=== PATIENT | female | born 1950 | race Caucasian/White ===

== ENCOUNTER 2016-10-15 14:00 | Inpatient (IN) | payer MEDICARE ==
--- NOTE | ~2016-10-15 | CN ---
Consultation Report [facility] [address] [place]. [address] NAME: LIZA SUMMERS : 46 STATUS : ADM IN PAT#: [id number] AGE: 66 ADM/REG DATE : 10/15/16 MR#: [id number] REPORT SERV DATE: 10/19/16 DICTATED BY: AIME ROSADO DATE: 10/19/16 REPORT STATUS : Draft TRANSCRIBED BY: MODL DATE: 10/19/16 CONSULTATION DATE OF CONSULTATION: 10/19/2016 REASON FOR CONSULTATION: Right-sided colon cancer. HISTORY OF PRESENT ILLNESS: Ms. Liza Summers is a 66-year-old woman with significant diabetes, history of a stroke almost 20 years ago, hyperlipidemia, hypertension, diabetic neuropathy. She was found to have a hemoglobin of 8.1 with microcytosis and admitted for transfusion. She is found to have mild renal insufficiency as well as iron deficiency. She reports over about a 40-pound weight loss over the last year and a half due to anorexia. She has had no prior colonoscopies. She underwent a colonoscopy on earlier today that showed right-sided colon cancer. CT scan done earlier today shows circumferential cecal mass measuring roughly 6 cm. She was given IV contrast, and there is no signs of hepatic or pulmonary metastases. The patient has already met with Dr. Hawkins earlier today and has to undergo surgery tomorrow for right hemicolectomy. PAST MEDICAL HISTORY: 1. Diabetes. 2. History of stroke. 3. Hyperlipidemia, hypertension, diabetic neuropathy. HOME MEDICATIONS: Lipitor, Lantus, Humalog, Prinivil, Lopressor, triamterene, B12. ALLERGIES: ASPIRIN. FAMILY HISTORY: No family history of colon cancer. 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 Lives with her and cares for her grandchildren. REVIEW OF SYSTEMS: See HPI. 40-pound weight loss over the last year and a half. Chronic neuropathy. No nausea, vomiting, diarrhea, hematochezia, melena. She has no acute pain at this point. PHYSICAL EXAMINATION: VITAL SIGNS: Temperature 97.0, heart rate of 81, BP 148/66. HEENT: Pupils equal, round, reactive. No oral lesions. No cervical adenopathy. LUNGS: Clear to auscultation. No wheezes or rales. CARDIAC: Regular rate and rhythm. Normal S1, S2. ABDOMEN: Soft, nontender, nondistended. EXTREMITIES: No clubbing, no cyanosis, no edema. Consultation Report [facility] [address] [place]. [address] NAME: LIZA SUMMERS : 46 STATUS : ADM IN PAT#: [id number] AGE: 66 ADM/REG DATE : 10/15/16 MR#: [id number] REPORT SERV DATE: 10/19/16 DICTATED BY: AIME ROSADO DATE: 10/19/16 REPORT STATUS : Draft TRANSCRIBED BY: RYAN DATE: 10/19/16 CT scan personally reviewed. There is a large cecal mass. Otherwise, no signs of distant disease. ASSESSMENT AND PLAN: Ms. Liza Summers is a 66-year-old woman with diabetes, diabetic neuropathy with the newly diagnosed adenocarcinoma of the right colon. Dr. Hawkins has already discussed and plans surgery tomorrow. I discussed with the patient that adjuvant chemotherapy will be based on the improvement in her performance status and results from the colectomy. I plan to see her in clinic two weeks after surgery to discuss this. I discussed the CT scans personally reviewed with the patient, and past history was reviewed. Iron deficiency anemia. She has a significant iron deficiency anemia. Hopefully, this will improve with surgery. DBD/RYAN Aime Rosado M.D. / [id number] CC: DO Antonio Curry MD
--- NOTE | ~2016-10-15 | DS ---
Discharge Summary [facility] [address] [place]. [address] NAME: LIBERTAD MESA : 46 STATUS : DIS IN PAT#: [id number] AGE: 66 ADM/REG DATE : 10/15/16 MR#: [id number] REPORT SERV DATE: 10/25/16 DICTATED BY: NILA CHANG DATE: 10/24/16 REPORT STATUS : Draft TRANSCRIBED BY: MODL DATE: 10/24/16 ADMISSION DATE: 10/15/2016 DISCHARGE DATE: 10/24/2016 HOSPITAL COURSE: A 66-year-old obese female. She has a known history of stroke in 1992, hyperlipidemia, hypertension, and type 2 diabetes, insulin dependence, has been on insulin for several years. The patient came in to primary care physician's office prior to hospitalization for weakness and fatigue, symptomatic anemia, hemoglobin 8.2, and guaiac positivity of the stool. She has also been having significant hyperglycemia into the upper 300s, A1c was above 11, noted to have a significant over 20-pound weight loss the last six months as well. She was seen to have ROSENDA, hyperkalemia, symptomatic anemia requiring 2 PRBCs initially for symptomatic anemia. The patient was evaluated by GI regarding this microcytic acute blood loss anemia. She did not have any evidence of overt active quick GI bleed but did have a slow bleed with guaiac positivity. As a result was set up for endoscopy which had showed gastritis and duodenitis. Then, she had a colonoscopy which had showed an unfortunate likely malignant partially obstructing tumor 8 cm proximal to the anus, biopsied, injected. She was staged with a CT thereafter. CT of abdomen and pelvis had showed a 6-cm circumferential mass in the cecum highly suspicious for carcinoma, no evidence of large necrotic lymph nodes, no evidence of liver lesions. She had a CT of the chest that showed only minimal pleural effusions and atelectasis. The last, however, I scanned her upper extremity on the left and just showed superficial thrombophlebitis, distal left basilic vein, no DVT found. Given her ROSENDA, she had a renal ultrasound. There was no obstruction found, kidney function returned back to baseline. The patient with Dr. Hawkins had a laparoscopic right colectomy with resection of the terminal ilium and an ileocolonic anastomosis. She is doing very well, the [place] has been pulled. She is tolerating a soft mechanical diet. She has required much less insulin than at home. Her acidosis has improved with sodium bicarbonate. She did have an E. coli UTI that was treated as well, finished treatment. The patient did have some acute blood loss anemia from surgery. Hemoglobin down to 7, gave her 2 units now, she is appropriate at 11 of hemoglobin. She has some mild brittle diabetes, occasionally would be hypoglycemic at night and now in the morning, I am reducing her Levemir or Lantus equivalent to now 6 units subcu at bedtime and 10 units subcu q.a.m., NovoLog 4 units subcu t.i.d. before meals. Given her weight loss and lifestyle modification, she may eventually have an A1c that would be permissive for oral antihyperglycemics, especially she is requiring less than 30 units of insulin total per day. Dr. Rosado has seen her for postoperative adjuvant chemotherapy. We will see her as an outpatient if is amenable regarding the biopsy and performance status. The patient does not want Home Health. PT states she can go home. DISCHARGE MEDS: Will be NovoLog 4 units subcu t.i.d. before meals as well as Imdur 30 p.o. daily; losartan 25 p.o. daily, hold if systolic less than 110; metoprolol tartrate 50 p.o. b.i.d.; Levemir 10 units subcu q.a.m. and 16 units subcu at bedtime; Lipitor 10 p.o. at Discharge Summary [address] [address] NAME: TYKAYLA JOYLANCE GUSMAN : 46 STATUS : DIS IN PAT#: [id number] AGE: 66 ADM/REG DATE : 10/15/16 MR#: [id number] REPORT SERV DATE: 10/25/16 DICTATED BY: NILA CHANG DATE: 10/24/16 REPORT STATUS : Draft TRANSCRIBED BY: MODAlexandra DATE: 10/24/16 bedtime as well as aspirin, enteric coated, 81 p.o. daily. FOLLOWUP: Follow up with Dr. Rosado in two weeks, Dr. Hawknis in two to three weeks, and primary care doctor in two weeks. Could consider possible oral anti-hyperglycemic treatment if she continues weight loss, her A1c gets below 8 on insulin, and she requires less than 30 units total insulin requirements over 24 hours. She has been brittle requiring much less insulin than in the past when she weighed much more. All questions were answered, took well over 30 minutes to do. [facility] and [facility]. To note, her biopsy of right colon is still pending. WST/MODL Nila Chang DO / [id number] CC: DO Antonio Curry MD
--- NOTE | ~2016-10-15 | EGD ---
EGD REPORT [facility] [address] [address] NAME: LIZA SUMMERS : 46 STATUS : ADM IN PAT#: [id number] AGE: 66 ADM/REG DATE : 10/15/16 MR#: [id number] REPORT SERV DATE: 10/19/16 DICTATED BY: SHADI SHEPARD DATE: 10/19/16 REPORT STATUS : Draft [facility]ANSCRIBED BY: [facility] DATE: 10/19/16 Endoscopy Center Patient Name: Liza Summers Date of : 1950 Attending MD: SHADI SHEPARD MD Procedure Date No Time: 10/19/2016 Procedure: Upper GI endoscopy Indications: Anemia Referring MD: Antonio Eid Medicines: Monitored Anesthesia Care Complications: No immediate complications. Estimated blood loss: Minimal. Procedure: Pre-Anesthesia Assessment: - ASA Grade Assessment: III - A patient with severe systemic disease. After obtaining informed consent, the endoscope was passed under direct vision. Throughout the procedure, the patient's blood pressure, pulse, and oxygen saturations were monitored continuously. The GIF [id number] was introduced through the mouth, and advanced to the second part of duodenum. The upper GI endoscopy was accomplished without difficulty. The patient tolerated the procedure well. Findings: The examined esophagus was normal. Patchy mild inflammation characterized by erosions, erythema and linear erosions was found in the entire examined stomach. Biopsies were taken with a cold forceps for Helicobacter pylori testing. Estimated blood loss was minimal. Localized mild inflammation characterized by congestion (edema), erosions and erythema was found in the duodenal bulb. The cardia and gastric fundus were normal on retroflexion. The exam was otherwise without abnormality. Impression: - Gastritis. Biopsied. - Duodenitis. - The examination was otherwise normal. Recommendation: - Perform a colonoscopy today. Procedure Code(s): --- Professional --- 82244, Esophagogastroduodenoscopy, flexible, transoral; with biopsy, single or multiple EGD REPORT [facility] [address] [place]. [address] NAME: LIZA SUMMERS : 46 STATUS : ADM IN [facility]#: [id number] AGE: 66 ADM/REG DATE : 10/15/16 MR#: [id number] REPORT SERV DATE: 10/19/16 DICTATED BY: SHADI SHEPARD DATE: 10/19/16 REPORT STATUS : Draft TRANSCRIBED BY: [email or web address] DATE: 10/19/16 Diagnosis Code(s): --- Professional --- K29.70, Gastritis, unspecified, without bleeding K29.80, Duodenitis without bleeding D64.9, Anemia, unspecified CPT copyright 2013 [employer]. All rights reserved. The codes documented in this report are preliminary and upon computer language coder review may be revised to meet current compliance requirements. Shadi Shepard MD SHADI SHEPARD MD 10/19/2016 9:36 AM This report has been signed electronically. Number of Addenda: 0 Note Initiated On: 10/19/2016 9:14 AM Scope Withdrawal Time 0 hours 0 minutes 0 seconds [address] [place] [address]
--- NOTE | ~2016-10-15 | HP ---
History And Physical [facility] [address] [place]. [address] NAME: LIBERTAD MESA : 46 STATUS : ADM IN PAT#: [id number] AGE: 66 ADM/REG DATE : 10/15/16 MR#: [id number] REPORT SERV DATE: 10/15/16 DICTATED BY: LEVY LANIER DATE: 10/15/16 REPORT STATUS : Draft TRANSCRIBED BY: MODAlexandra DATE: 10/15/16 DATE OF ADMISSION: 10/15/2016 CHIEF COMPLAINT: Sent from primary care doctor's office for abnormal lab values. HISTORY OF PRESENT ILLNESS: This is a 66-year-old female, who presented to her primary care doctor's office for concerns weakness and fatigue yesterday. It was noted that she had a hemoglobin of 8.2. She was scheduled for today to have three units of blood scheduled as an outpatient. He also referred her for an urgent colonoscopy and endoscopy for which she was scheduled on 10/28/2016. Per patient, she has had this fatigue with worsening weakness including having to use a cane for about the past week. She says she has had some falls that she is unable to catch herself mostly at night when she cannot see very well. She denies any melena or hematuria. She says her stools are normal brown without any bright red blood. She denies any fevers, chills, shortness of breath, or chest pain. She notes that she has not been checking her blood sugars very well, but has noted that when she checks them maybe once a day, they have been up to 300s. Her A1c yesterday at primary care doctor's office was 11. She has notably had about a 40-pound weight loss in the past year and half which has been intentional. She previously was on metformin which they stopped about six months ago because she said she was urinating too much and it was making her dehydrated. REVIEW OF SYSTEMS: Full review of systems is obtained and is negative with the exception of above HPI. PAST MEDICAL HISTORY: Includes history of stroke in 1992, hyperlipidemia, hypertension, and type 2 diabetes. SOCIAL HISTORY: Denies alcohol or drug use. Lives with her who is a inorganic chemist. FAMILY HISTORY: Denies any family history of chronic medical conditions. Per primary care notes, there is a history of hypertension and type 2 diabetes. HOME MEDICATIONS: List is pending at this time. However, the patient does recall she takes lisinopril, metoprolol, as well as Lantus 80 units subcu at night with sliding scale. PHYSICAL EXAMINATION: VITAL SIGNS: Temperature is 97.6, pulse 81, respiratory rate 19, saturating 99% on room air, with blood pressure of 138/62. LABORATORY DATA: From her primary care physician's office yesterday with white blood cell count of 18.8, hemoglobin of 8.1, and platelet count of 702. Creatinine 1.9, BUN is 76, serum sodium 120, with chloride of 92, CO2 of 14, and potassium of 6.6. Current laboratory data which was a collected stat here in the hospital shows serum sodium 128, potassium 4.7, chloride 99, CO2 of 17, BUN 73, creatinine 2.37, with glucose of 529. ASSESSMENT AND PLAN: This is a 66-year-old female with a history of hypertension, History And Physical [address] [address] NAME: LIBERTAD MESA NASEEM : 46 STATUS : ADM IN PAT#: [id number] AGE: 66 ADM/REG DATE : 10/15/16 MR#: [id number] REPORT SERV DATE: 10/15/16 DICTATED BY: LEVY LANIER DATE: 10/15/16 REPORT STATUS : Draft TRANSCRIBED BY: RYAN DATE: 10/15/16 hyperlipidemia, and stroke, presenting from primary care doctor's office due to hyperkalemia. 1. Hyperkalemia. The patient's repeat potassium here is 4.7, we will monitor that. We will hold her lisinopril and correct her other issues. 2. Acute renal failure. Her creatinine yesterday was 1.9 per the physician I just spoke with who is her primary care doctor, Dr. Eid. Her creatinine had been normal prior to that. Again for this acute renal failure, we will hydrate her. She does have a non-anion gap metabolic acidosis with this. We will give her IV fluids with IV bicarb. Check urinalysis with urine lytes as well as a renal ultrasound. We will hold her lisinopril as well as other nephrotoxic drugs and renally do adjust medications as needed. 3. Uncontrolled type 2 diabetes with A1c of over 11. The patient has been on Lantus 18 units at bedtime. No p.o. medications as far as I know on a sliding scale. At this point, we will have Diabetes Education see her, monitor her blood sugars, and place her on a diabetic diet. We will continue her home 18 units and monitor her blood sugars here and place her on sliding scale. 4. Pseudohyponatremia. Follow with repeat blood work in the morning. 5. Non-anion gap metabolic acidosis due to renal failure. We will give her IV fluids with bicarb and follow. 6. Anemia. The patient did receive 2 units of blood as an outpatient today, unclear etiology of this anemia. Unfortunately, I do not have the ability to check an iron panel given she has already received blood. We will Hemoccult her stools. She has an outpatient followup in October for colonoscopy and endoscopy. We will keep these appointments unless she has any active bleeding here and will not proceed with endoscopy and colonoscopy at this time. We will check a CBC in the morning and follow her counts while she is here. She does not have any history of active bleeding. Thus, I feel it is safe to wait for outpatient endoscopy to work this up. This is not a life- threatening issue. Pending her repeat blood work here. 7. Fatigue with weakness. I suspect this is largely related to her very uncontrolled diabetes, possibly related to her anemia as well. The anemia has been corrected. We will follow her along here and have PT see her and monitor. 8. Unintentional weight loss with moderate malnutrition. Again, I suspect this is largely related to her uncontrolled diabetes. We will monitor her here, continue to monitor her blood sugars, and place her on an appropriate diet. Again, she will need close followup as an outpatient. 9. Code status is limited. She does not wish to have compressions or intubation. Deep vein thrombosis prophylaxis will be with heparin. DNK/MODL Levy Lanier MD / [id number] History And Physical [address] [address] NAME: LIBERTAD MESA DOB: [birth year] STATUS : ADM IN PAT#: [id number] AGE: 66 ADM/REG DATE : 10/15/16 MR#: [id number] REPORT SERV DATE: 10/15/16 DICTATED BY: LEVY LANIER DATE: 10/15/16 REPORT STATUS : Draft TRANSCRIBED BY: MODL DATE: 10/15/16 CC: MD Antonio Bliss MD
--- NOTE | ~2016-10-15 | OP ---
Record Of Operation [facility] [address] [place]. [address] NAME: LIBERTAD MESA : 46 STATUS : ADM IN [facility]#: [id number] AGE: 66 ADM/REG DATE : 10/15/16 MR#: [id number] REPORT SERV DATE: 10/21/16 DICTATED BY: PRABHAKAR ROOT III DATE: 10/20/16 REPORT STATUS : Draft TRANSCRIBED BY: MODL DATE: 10/20/16 DATE OF PROCEDURE: 10/20/2016 PREOPERATIVE DIAGNOSIS: Obstructing cancer of the right colon. POSTOPERATIVE DIAGNOSES: Obstructing cancer of the right colon, large malignancy of the cecum associated with iron deficiency anemia and near obstruction. PROCEDURE: Laparoscopic right colectomy with resection of terminal ileum and ileocolonic anastomosis. SURGEON: Prabhakar Root M.D. ANESTHESIA: General with intubation. COMPLICATIONS: None. ESTIMATED BLOOD LOSS: 25 mL. SPECIMENS: Terminal ileum and right colon. DRAINS: Ophelia in subcutaneous tissue. LAP AND SPONGE COUNT: Correct x3. BRIEF HISTORY: This 66-year-old female was admitted to the hospital emergently with evidence for severe anemia requiring transfusion. Subsequent workup revealed a large mass in the right colon. Her workup showed no evidence for metastatic disease. It was felt that a laparoscopic right colectomy, possible laparotomy, was indicated. This procedure, the risks, benefits, and alternatives, including but not limited to in the risk for bleeding, infection, enterotomy, injury to any abdominal structure, postop small bowel obstruction, ileus, incisional hernia, dehiscence, anastomotic leak, requiring reoperation with ileostomy, ureteral injury, possible need for laparotomy, and unforeseen complications including deep venous thrombosis, pulmonary embolus, myocardial infarction, stroke, pneumonia, and , were fully and completely explained to the patient and family at length prior to surgery. The fact that this was a major operation with risk for major morbidity and mortality was explained as well as the expected length of recovery with open laparoscopic procedures. The patient and family had questions, which were answered. They fully understood the risks and agreed to the surgery as planned. FINDINGS: The patient had a large obvious malignancy of the cecum. There was no evidence for metastatic disease or carcinomatosis. Resection with clear margins was performed. DESCRIPTION OF PROCEDURE: After being properly identified and after discussing the risks of surgery with the patient and family again in the preoperative area and after appropriate bowel preparation, the patient was taken to the operating room and placed in the supine Record Of [address] [address] NAME: LIBERTAD MESA : 46 STATUS : ADM IN PAT#: [id number] AGE: 66 ADM/REG DATE : 10/15/16 MR#: [id number] REPORT SERV DATE: 10/21/16 DICTATED BY: PRABHAKAR ROOT III DATE: 10/20/16 REPORT STATUS : Draft TRANSCRIBED BY: MODAlexandra DATE: 10/20/16 position on the operating room table. General anesthesia was administered and she was intubated without difficulty. A Padilla catheter was inserted. The abdomen was prepped and draped sterilely in the usual fashion. After an appropriate "time-out" per [employer] standards, a small transverse incision was made just below the navel. Incision was continued through the subcutaneous tissue. Hemostasis was controlled with cautery. The incision was continued through the fascia. The abdominal cavity was entered under direct vision. A #10 balloon-tipped origin trocar was placed under direct vision into the abdominal cavity. The balloon was inflated. The abdominal cavity was then insufflated to about 13 mmHg of carbon dioxide. Correct position of the air in the peritoneal cavity was confirmed by palpation. The laparoscope was placed through this. The abdomen was inspected. There was an obvious large malignancy in the cecum. This had been marked by the endoscopist. There was no evidence for carcinomatosis or peritoneal implants. The liver appeared to be normal. A 5-mm trocar was placed in the midline, midway between the umbilicus and xiphoid process, under direct vision with the laparoscope. Another 5-mm trocar was placed in the midline, just above the pubis, also under direct vision with the laparoscope. The appropriate instruments were placed through the trocars. The patient was rolled slightly to her left. The right colon was grasped and retracted medially. Using sharp dissection, peritoneal reflection along the line of Toldt was divided from the cecum to the hepatic flexure. The entire right colon was thus mobilized medially to the right. Ureter was identified and kept in view and not encroached upon. The adhesions or band between the terminal ileum and the pelvis were divided. After full mobilization, a vertical incision was made along the right lateral abdominal wall over the mid right colon. The incision was continued through the subcutaneous tissue. Hemostasis was controlled. The incision was continued through all layers of fascia. The abdominal cavity was entered. The right colon was mobilized into the wound. There was extremely large mass, which incorporated the entire cecum. We selected a point for division of the terminal ileum several centimeters proximal to the ileocecal valve. A window was made in mesentery of the ileum at this point and the SAIMA stapler was used to divide the ileum at this point. We then selected a point for division of the right colon, just proximal to the hepatic flexure, beyond the tumor. A window was made in the mesentery of the colon at this point. A SAIMA stapler was used about the colon this point. The mesentery of the right colon was then divided using Harmonic scalpel. This was done along the base of the mesentery so as to perform a correct oncologic dissection of the lymphovascular supply to the right colon. The right colon was thus removed and sent to pathology. It was interpreted as containing the tumor with clear margins. We then performed a gcuf-am-ahee anastomosis between the divided terminal ileum and the distal right colon. This was performed by aligning the antimesenteric border of the small bowel with the antimesenteric border of the colon with interrupted 3-0 silk sutures. A small opening was then made in the antimesenteric border of the small bowel and corresponding antimesenteric border of the colon. A SAIMA stapler was placed through this and fired. The defect created by the stapler was then closed with TA-60 stapler. This staple line was oversewn with interrupted 3-0 silk sutures. The "crotch" anastomosis was secured Record Of Operation [facility] [id number] [place]. [address] NAME: TYLIBERTAD JOY NASEEM : 46 STATUS : ADM IN PAT#: [id number] AGE: 66 ADM/REG DATE : 10/15/16 MR#: [id number] REPORT SERV DATE: 10/21/16 DICTATED BY: PRABHAKAR ROOT III DATE: 10/20/16 REPORT STATUS : Draft TRANSCRIBED BY: MODL DATE: 10/20/16 with interrupted 3-0 silk sutures. Upon completion of the anastomosis, we realized that the mesentery was somewhat twisted. I was not satisfied with the anastomosis. I, therefore, resected this anastomosis by dividing the small bowel proximal to it and divided the colon just distal to it with the SAIMA stapler. This was sent separately as a separate specimen consisting of additional terminal ileum and additional distal right colon. We then repeated the anastomosis in the same fashion. Upon completion of this anastomosis, it was patent to palpation. It was not twisted or kinked in any way. It was not under any tension. The mesenteric defect was closed with a running 3-0 silk suture. Again, this anastomosis was widely patent to palpation, it was not twisted or kinked in any way. It was not under any tension. This was reduced back in the abdominal cavity. The area was irrigated copiously with saline. Hemostasis was assured. The fascia was then closed in two layers with a running looped #1 PDS suture. All trocars were removed. The fascia of the infraumbilical incision was closed with a 0 Vicryl suture. The subcutaneous tissue of the right lateral abdominal wall incision was closed with a running 3-0 chromic suture over a Ophelia drain, which was brought out through the inferior aspect of the incision. The skin incisions were closed with running subcuticular 4-0 Monocryl stitches. They were injected with 0.5% Marcaine. Dressings were applied. Anesthesia was reversed and the patient was taken to the recovery room in stable condition. She tolerated the procedure well. Her family was informed the results of surgery. The patient will remain in the hospital for postoperative care. RHJ/MODL Prabhakar Root III, M.D. / [id number] CC: DO Antonio Curry MD William M. Cooney, MD
--- NOTE | ~2016-10-15 | EGD ---
EGD REPORT [facility] [address] [place]. [address] NAME: LIZA SUMMERS : 46 STATUS : ADM IN PAT#: [id number] AGE: 66 ADM/REG DATE : 10/15/16 MR#: [id number] REPORT SERV DATE: 10/19/16 DICTATED BY: SHADI SHEPARD DATE: 10/19/16 REPORT STATUS : Draft TRANSCRIBED BY: [facility] DATE: 10/19/16 Endoscopy Center Patient Name: Liza Summers Date of : 1950 Attending MD: SHADI SHEPARD MD Procedure Date No Time: 10/19/2016 Procedure: Colonoscopy Indications: Anemia Referring MD: Antonio Eid Medicines: Monitored Anesthesia Care Complications: No immediate complications. Estimated blood loss: Minimal. Procedure: Pre-Anesthesia Assessment: - ASA Grade Assessment: III - A patient with severe systemic disease. After I obtained informed consent, the scope was passed under direct vision. Throughout the procedure, the patient's blood pressure, pulse, and oxygen saturations were monitored continuously. The CF [id number] was introduced through the anus and advanced to the ascending colon. The colonoscopy was performed without difficulty. The patient tolerated the procedure well. The quality of the bowel preparation was good. Findings: The perianal and digital rectal examinations were normal. Pertinent negatives include no palpable rectal lesions. A fungating partially obstructing large mass was found at 80 cm proximal to the anus. The mass was circumferential. Oozing was present. Biopsies were taken with a cold forceps for histology. Area was successfully injected with 5 mL Spot (carbon black) for tattooing. Estimated blood loss was minimal. The exam was otherwise without abnormality on direct and retroflexion views. Impression: - Likely malignant partially obstructing tumor at 80 cm proximal to the anus. Biopsied. Injected. - The examination was otherwise normal on direct and retroflexion views. Recommendation: - Clear liquid diet today. - Await pathology results. - Perform a CT scan (computed tomography) of chest with contrast, abdomen with contrast and pelvis with contrast today. EGD REPORT [address] [address] NAME: LIZA SUMMERS : 46 STATUS : ADM IN [facility]#: [id number] AGE: 66 ADM/REG DATE : 10/15/16 MR#: [id number] REPORT SERV DATE: 10/19/16 DICTATED BY: SHADI SHEPARD DATE: 10/19/16 REPORT STATUS : Draft TRANSCRIBED BY: [employer] DATE: 10/19/16 - Refer to a colo-rectal surgeon today. - Check CEA today. Procedure Code(s): --- Professional --- 26441, 52, Colonoscopy, flexible, proximal to splenic flexure; with biopsy, single or multiple 21533, 52, Colonoscopy, flexible, proximal to splenic flexure; with directed submucosal injection(s), any substance Diagnosis Code(s): --- Professional --- D49.0, Neoplasm of unspecified behavior of digestive system D64.9, Anemia, unspecified CPT copyright 2013 [employer]. All rights reserved. The codes documented in this report are preliminary and upon jewelry facer review may be revised to meet current compliance requirements. Shadi Shepard MD SHADI SHEPARD MD 10/19/2016 10:05 AM This report has been signed electronically. Number of Addenda: 0 Note Initiated On: 10/19/2016 9:15 AM Scope Withdrawal Time 0 hours 0 minutes 0 seconds [address] [place] [address]
--- NOTE | ~2016-10-15 | CN ---
Consultation Report [facility] [address] [place]. [address] NAME: LIBERTAD MESA : 46 STATUS : ADM IN [facility]#: [id number] AGE: 66 ADM/REG DATE : 10/15/16 MR#: [id number] REPORT SERV DATE: 10/16/16 DICTATED BY: ROBERT SHELLEY DATE: 10/16/16 REPORT STATUS : Draft TRANSCRIBED BY: RYAN DATE: 10/16/16 GI CONSULTATION DATE OF CONSULTATION: 10/16/2016 REASON FOR CONSULTATION: Microcytic anemia. HISTORY OF PRESENT ILLNESS: The patient is a 66-year-old female, who was referred from her primary care physician's office for admission. She was found to be anemic with hemoglobin of 8.1 with microcytic indices. She was referred for transfusion, which she received. She was also noted to have acute kidney injury. Because of her anemia, she was referred for urgent upper and lower endoscopy which is scheduled with Dr. Zuleta later in the month. The patient denies any change in bowel habits. She denies any blood in her stool. She denies any nausea or vomiting or abdominal pain. She has lost approximately 40 pounds in the last one and half years. She does admit that her appetite has decreased. She has never had a prior colonoscopy. On admission here, her creatinine has improved with rehydration and holding her VIRGIE inhibitor. Her hemoglobin currently is 12.8. PAST MEDICAL HISTORY: Significant for diabetes, history of CVA, hyperlipidemia, hypertension, hypertriglyceridemia, diabetic nephropathy. HOME MEDICATIONS: Lipitor, Lantus, Humalog, Prinivil, Lopressor, triamterene/hydrochlorothiazide, B12. ALLERGIES: ASPIRIN. FAMILY HISTORY: No gastrointestinal malignancy. SOCIAL HISTORY: No tobacco. No illicit drug use. REVIEW OF SYSTEMS: As in HPI. Otherwise, currently negative for fevers or myalgias. Positive for fatigue and weight loss. PHYSICAL EXAMINATION: GENERAL: Well-developed, well-nourished female, currently in no acute distress. HEENT: Atraumatic, normocephalic. Anicteric sclerae. NECK: Supple. No lymphadenopathy or JVD. CARDIOVASCULAR: Regular rhythm without murmurs, rubs, or gallops. LUNGS: Clear to auscultation bilaterally. ABDOMEN: Soft, nontender, nondistended. Positive bowel sounds. EXTREMITIES: No cyanosis, clubbing, or edema. SKIN: Warm and dry. NEURO: Alert and oriented x3. Consultation Report [facility] [address] [place]. [address] NAME: LIBERTAD MESA : [birth year] STATUS : ADM IN [facility]#: [id number] AGE: 66 ADM/REG DATE : 10/15/16 MR#: [id number] REPORT SERV DATE: 10/16/16 DICTATED BY: ROBERT SHELLEY DATE: 10/16/16 REPORT STATUS : Draft TRANSCRIBED BY: RYAN DATE: 10/16/16 IMPRESSION AND PLAN: Microcytic anemia appears to be progressive in nature with no evidence of any overt active gastrointestinal bleeding. She has never had any prior endoscopy, so definitely needs to have upper and lower endoscopic evaluation. She has an outpatient appointment scheduled on 10/28/2016 for an upper and lower endoscopy, which is appropriate. At this point, I do not feel she proceed with an endoscopy here in the hospital and the patient concurs. MAKAYLA/RYAN Robert Shelley M.D. / [id number] CC: Ibis [address] MD
--- NOTE | ~2016-10-15 | CN ---
Consultation Report [address] [place]. [address] NAME: LIBERTAD MESA : 46 STATUS : ADM IN PAT#: [id number] AGE: 66 ADM/REG DATE : 10/15/16 MR#: [id number] REPORT SERV DATE: 10/19/16 DICTATED BY: PRABHAKAR ROOT III DATE: 10/19/16 REPORT STATUS : Draft TRANSCRIBED BY: MODAlexandra DATE: 10/19/16 CONSULTATION REPORT DATE OF CONSULTATION: REASON FOR CONSULT: 1. Colon neoplasm. 2. Recommendation regarding surgical management. HISTORY OF PRESENT ILLNESS: I am asked to see this 66-year-old female hospitalized for the above reasons. The patient was admitted to the hospital emergently with severe symptomatic anemia. Colonoscopy performed today, which showed a large ulcerated mass at 80 cm from the anus. The patient has had no nausea or vomiting. She has had no gerson blood per rectum. She does complain of weakness and fatigue. She was seen in a primary care physician's office and was noted to have a hemoglobin of 8.2. She required 3 units of blood in transfusion. She underwent colonoscopy and was found have a large mass in the proximal colon at 80 cm. The patient complains of fatigue, which has been ongoing for the last several weeks. She complains of frequent falls and states that she cannot see very well. She has had no definite blood per rectum. She states her stools have been brown in color. Associated with this has been a 40-pound weight loss over the last year and half, which has been intentional. PAST MEDICAL HISTORY: 1. Cerebrovascular accident in the past. 2. Diabetes mellitus. 3. Hypertension. 4. Hyperlipidemia. 5. History of cerebrovascular accident in the past. SOCIAL HISTORY: The patient is . She lives locally with her . She has no history of tobacco or alcohol use. FAMILY HISTORY: Remarkable for hypertension and diabetes. ALLERGIES: ASPIRIN. MEDICATIONS: Lipitor, insulin, Prinivil, Lopressor, and Maxzide. REVIEW OF SYSTEMS: Consultation Report [address] [place]. [address] NAME: LIBERTAD MESA : 46 STATUS : ADM IN PAT#: [id number] AGE: 66 ADM/REG DATE : 10/15/16 MR#: [id number] REPORT SERV DATE: 10/19/16 DICTATED BY: DK MAYSPRAHBAKAR MALONET DATE: 10/19/16 REPORT STATUS : Draft TRANSCRIBED BY: MODL DATE: 10/19/16 The patient's 14-point review of systems is otherwise unremarkable. PHYSICAL EXAMINATION: GENERAL: This is a female who appears chronically ill. Her skin is somewhat discolored. She is alert and oriented x3. VITAL SIGNS: Blood pressure 148/66, pulse 81, and temperature 97. HEENT: Unremarkable. Cranial nerves II through XII are normal. LUNGS: Clear. CARDIAC: Normal. ABDOMEN: Soft and nontender. EXTREMITIES: Normal with no edema. LABORATORY DATA: Electrolytes today are normal. On admission, the patient's BUN is markedly elevated at 73 with a creatinine of 2.37. Her liver enzymes are normal. Her CEA is normal at 3.7. CT scan of the abdomen and pelvis, which I reviewed shows a large 6 cm mass in the cecum suspicious for carcinoma. No evidence for metastatic disease is seen. The kidneys are noted to be atrophic. Colonoscopy shows a large ulcerated mass at 80 cm from the anus consistent with malignancy. Biopsy is pending. This was a fungating partially obstructing mass, which was circumferential. ASSESSMENT: 1. A 66-year-old female with large mass of the proximal colon, most likely in the cecum, most likely malignant with pathology report pending. 2. Chronic gastrointestinal bleeding and symptomatic anemia, requiring transfusion secondary to #1. 3. Diabetes mellitus. 4. Acute kidney injury, which has resolved at this time. 5. History of cerebrovascular accident in the past. 6. Hyperlipidemia. 7. Hypertension. PLAN: The patient appears to have a large cancer of the proximal colon, most likely the right colon. This has been associated with symptomatic severe anemia and weight loss. I have recommended laparoscopic colectomy, possible laparotomy, which will likely involve the right colon. We will schedule it to be done tomorrow and continue her bowel prep today. This procedure, laparoscopic colectomy, possible laparotomy, the risks, benefits, and alternatives, including but not limited to the risk for bleeding, infection, enterotomy, injury to any abdominal structure, postop small bowel obstruction, ileus, incisional hernia, dehiscence, anastomotic leak, requiring reoperation with ileostomy, ureteral injury, possible need for laparotomy, anesthetic complications, and unforeseen complications including deep venous thrombosis, pulmonary embolus, myocardial infarction, stroke, pneumonia, and , have been fully and completely explained to the patient and her at length. The length of recovery of both open and laparoscopic procedures has been explained. Her questions have been answered. They clearly understand the risks and agreed to surgery as planned. Consultation Report [facility] [id number] [place]. [address] NAME: LIBERTAD MESA : 46 STATUS : ADM IN [facility]#: [id number] AGE: 66 ADM/REG DATE : 10/15/16 MR#: [id number] REPORT SERV DATE: 10/19/16 DICTATED BY: PRABHAKAR ROOT III DATE: 10/19/16 REPORT STATUS : Draft TRANSCRIBED BY: YRAN DATE: 10/19/16 Trip/RYAN Prabhakar Root III, M.D. / [id number] CC: MD Antonio Bliss MD
[2016-10-15 15:03] LABS: BUN (BLOOD UREA NITROGEN) 73 MG/DL (6-23); CHLORIDE, SERUM 99 MMOL/L (96-112); CO2 (CARBON DIOXIDE) 17 MMOL/L (24-34); CREATININE 2.37 MG/DL (0.55-1.02); GFR AFRICAN AMERICAN 24 ML/MIN (>=60); GFR NON AFRICAN AMERICAN 20 ML/MIN (>=60); POTASSIUM, SERUM 4.7 MMOL/L (3.5-5.3); SODIUM, SERUM 128 MMOL/L (135-148)
[2016-10-15 15:04] LABS: GLUCOSE, SERUM 529 MG/DL (60-99)
[2016-10-15] MEDS ORDERED: LIPITOR10 PO (17:59)
[2016-10-15] MEDS ORDERED: PLAVIX PO (17:59)
[2016-10-15] MEDS ORDERED: LOPID6 PO (18:03)
[2016-10-15] MEDS ORDERED: HUMALOG SC (18:04)
[2016-10-15] MEDS ORDERED: LEVEMIR SC (18:05)
[2016-10-15] MEDS ORDERED: LISINOPRIL40 MG PO (18:05)
[2016-10-15] MEDS ORDERED: LOP50 PO (18:06)
[2016-10-15] MEDS ORDERED: MAX25 PO (18:12)
[2016-10-15] MEDS ORDERED: Tylenol PO (19:39)
[2016-10-15] MEDS ORDERED: VITAMIN B12 GUMMY PO (19:39)
[2016-10-15 21:34] LABS: ASCORBIC ACID (UR NOT ORDER) NEG (NEG); BILIRUBIN, URINE NEGATIVE (NEG); KETONE, URINE NEGATIVE (NEG); LEUKOCYTE ESTERASE(NOT OR MOD (NEG); WBC (NOT ORDERED) (RFLEX) 57 (0-5)
[2016-10-15 22:28] LABS: CREATININE, URINE 58.2 MG/DL
[2016-10-16 05:54] LABS: ALBUMIN 2.2 G/DL (3.5-5.0); ALKALINE PHOSPHATASE 94 U/L (45-117); CALCIUM, SERUM 7.8 MG/DL (8.5-10.4); CHLORIDE, SERUM 102 MMOL/L (96-112); POTASSIUM, SERUM 4.8 MMOL/L (3.5-5.3); SGOT(AST) 9 U/L (5-40); SGPT(ALT) 7 U/L (5-65); SODIUM, SERUM 133 MMOL/L (135-148); TOTAL BILIRUBIN 0.4 MG/DL (0-1.2); TOTAL PROTEIN 6.1 G/DL (6.0-8.5)
[2016-10-16 06:05] LABS: BUN (BLOOD UREA NITROGEN) 58 MG/DL (6-23); CO2 (CARBON DIOXIDE) 22 MMOL/L (24-34); CREATININE 1.56 MG/DL (0.55-1.02); DIRECT BILIRUBIN < 0.1 MG/DL (0.0-0.4); GFR AFRICAN AMERICAN 39 ML/MIN (>=60); GFR NON AFRICAN AMERICAN 34 ML/MIN (>=60); GLUCOSE, SERUM 272 MG/DL (60-99); INDIRECT BILIRUBIN(NOT ORDER) 0.3 MG/DL (0.1-0.9)
[2016-10-16 06:10] LABS: BASOPHILS 0.1 %; BASOPHILS ABSOLUTE 0.01 10/3/uL (0.0-0.16); EOSINOPHILS 0.1 %; EOSINOPHILS ABSOLUTE 0.01 10/3/uL (0.0-0.53); HEMATOCRIT 30.6 % (36.0-48.0); HEMOGLOBIN 9.8 g/dL (12.0-16.0); IMMATURE GRANULOCYTES 0.4 %; IMMATURE GRANULOCYTES ABSOLUTE 0.05 10/3/uL (0.0-0.11); LYMPHOCYTES 7.5 %; LYMPHOCYTES ABSOLUTE 0.96 10/3/uL (0.67-4.30); MEAN CORPUSCULAR HEMOGLOB 22.3 pg (26.0-34.0); MEAN CORPUSCULAR VOLUME 69.5 fL (80-100); MONOCYTES 8.4 %; MONOCYTES ABSOLUTE 1.08 10/3/uL (0.21-1.20); NEUTROPHILS 83.5 %; NEUTROPHILS ABSOLUTE 10.71 10/3/uL (2.02-8.40); PLATELET COUNT 359 10/3/uL (150-400); WHITE BLOOD CELLS 12.8 10/3/uL (4.5-10.5)
[2016-10-16 06:13] LABS: MANUAL DIFF NO %
[2016-10-16 07:44] LABS: PLATELET ESTIMATE ADQ (ADEQUATE); POLYCHROMASIA 1+ (2-5/OIF) (0-1/OIF)
[2016-10-17 06:07] LABS: BASOPHILS 0.1 %; BASOPHILS ABSOLUTE 0.01 10/3/uL (0.0-0.16); EOSINOPHILS 0 %; HEMATOCRIT 30.9 % (36.0-48.0); HEMOGLOBIN 9.6 g/dL (12.0-16.0); IMMATURE GRANULOCYTES 0.2 %; IMMATURE GRANULOCYTES ABSOLUTE 0.04 10/3/uL (0.0-0.11); LYMPHOCYTES 7.7 %; LYMPHOCYTES ABSOLUTE 1.37 10/3/uL (0.67-4.30); MEAN CORPUS HGB CONC 31.1 g/dL (32.0-36.0); MEAN CORPUSCULAR HEMOGLOB 22.3 pg (26.0-34.0); MEAN PLATELET VOLUME 8.9 fL (9.2-13.0); MONOCYTES 8.5 %; MONOCYTES ABSOLUTE 1.51 10/3/uL (0.21-1.20); NEUTROPHILS 83.5 %; NEUTROPHILS ABSOLUTE 14.78 10/3/uL (2.02-8.40); PLATELET COUNT 331 10/3/uL (150-400); RBC DISTRIBUTION WIDTH 22.7 % (12.0-16.0); RED CELL COUNT 4.31 10/6/uL (4.0-5.6); WHITE BLOOD CELLS 17.7 10/3/uL (4.5-10.5)
[2016-10-17 06:09] LABS: MANUAL DIFF NO %; MEAN CORPUSCULAR VOLUME 71.7 fL (80-100)
[2016-10-17 06:25] LABS: CHLORIDE, SERUM 98 MMOL/L (96-112); GFR AFRICAN AMERICAN 49 ML/MIN (>=60); GFR NON AFRICAN AMERICAN 42 ML/MIN (>=60); PHOSPHORUS, SERUM 1.8 MG/DL (2.5-4.5); POTASSIUM, SERUM 4.3 MMOL/L (3.5-5.3); SODIUM, SERUM 134 MMOL/L (135-148)
[2016-10-17 06:27] LABS: BUN (BLOOD UREA NITROGEN) 32 MG/DL (6-23); CO2 (CARBON DIOXIDE) 28 MMOL/L (24-34); GLUCOSE, SERUM 157 MG/DL (60-99)
[2016-10-17 07:42] LABS: ANISOCYTOSIS 1+ (5-10/OIF) (0-5/OIF); ELLIPTOCYTES 1+ (3-10/OIF) (0-2/OIF); PLATELET ESTIMATE ADQ (ADEQUATE); POLYCHROMASIA 1+ (2-5/OIF) (0-1/OIF)
[2016-10-18 05:58] LABS: BASOPHILS 0.1 %; BASOPHILS ABSOLUTE 0.01 10/3/uL (0.0-0.16); EOSINOPHILS 0 %; HEMOGLOBIN 8.5 g/dL (12.0-16.0); IMMATURE GRANULOCYTES 0.2 %; IMMATURE GRANULOCYTES ABSOLUTE 0.03 10/3/uL (0.0-0.11); LYMPHOCYTES 9.4 %; LYMPHOCYTES ABSOLUTE 1.42 10/3/uL (0.67-4.30); MEAN CORPUS HGB CONC 30.9 g/dL (32.0-36.0); MEAN CORPUSCULAR HEMOGLOB 22.5 pg (26.0-34.0); MEAN CORPUSCULAR VOLUME 72.9 fL (80-100); MEAN PLATELET VOLUME 8.8 fL (9.2-13.0); MONOCYTES 8.3 %; MONOCYTES ABSOLUTE 1.25 10/3/uL (0.21-1.20); NEUTROPHILS ABSOLUTE 12.36 10/3/uL (2.02-8.40); PLATELET COUNT 280 10/3/uL (150-400); RED CELL COUNT 3.77 10/6/uL (4.0-5.6); WHITE BLOOD CELLS 15.1 10/3/uL (4.5-10.5)
[2016-10-18 06:06] LABS: HEMATOCRIT 27.5 % (36.0-48.0); MANUAL DIFF NO %
[2016-10-18 06:09] LABS: ALBUMIN 1.6 G/DL (3.5-5.0); CALCIUM, SERUM 8.3 MG/DL (8.5-10.4); CHLORIDE, SERUM 100 MMOL/L (96-112); CO2 (CARBON DIOXIDE) 29 MMOL/L (24-34); GFR AFRICAN AMERICAN 60 ML/MIN (>=60); GFR NON AFRICAN AMERICAN 52 ML/MIN (>=60); PHOSPHORUS, SERUM 2.1 MG/DL (2.5-4.5); POTASSIUM, SERUM 3.7 MMOL/L (3.5-5.3); SODIUM, SERUM 137 MMOL/L (135-148)
[2016-10-18 06:10] LABS: BUN (BLOOD UREA NITROGEN) 24 MG/DL (6-23); GLUCOSE, SERUM 110 MG/DL (60-99)
[2016-10-18 07:34] LABS: PLATELET ESTIMATE ADQ (ADEQUATE); POLYCHROMASIA 1+ (2-5/OIF) (0-1/OIF)
[2016-10-18 15:51] LABS: HEMOGLOBIN 8.8 g/dL (12.0-16.0)
[2016-10-19 05:43] LABS: BASOPHILS 0.1 %; BASOPHILS ABSOLUTE 0.01 10/3/uL (0.0-0.16); EOSINOPHILS 0.2 %; EOSINOPHILS ABSOLUTE 0.02 10/3/uL (0.0-0.53); HEMATOCRIT 27.3 % (36.0-48.0); HEMOGLOBIN 8.3 g/dL (12.0-16.0); IMMATURE GRANULOCYTES 0.3 %; IMMATURE GRANULOCYTES ABSOLUTE 0.03 10/3/uL (0.0-0.11); LYMPHOCYTES 13.6 %; LYMPHOCYTES ABSOLUTE 1.47 10/3/uL (0.67-4.30); MEAN CORPUS HGB CONC 30.4 g/dL (32.0-36.0); MEAN CORPUSCULAR HEMOGLOB 22.5 pg (26.0-34.0); MEAN PLATELET VOLUME 8.9 fL (9.2-13.0); MONOCYTES 6.2 %; MONOCYTES ABSOLUTE 0.67 10/3/uL (0.21-1.20); NEUTROPHILS 79.6 %; NEUTROPHILS ABSOLUTE 8.61 10/3/uL (2.02-8.40); PLATELET COUNT 298 10/3/uL (150-400); RBC DISTRIBUTION WIDTH 22.8 % (12.0-16.0); RED CELL COUNT 3.69 10/6/uL (4.0-5.6); WHITE BLOOD CELLS 10.8 10/3/uL (4.5-10.5)
[2016-10-19 05:44] LABS: MANUAL DIFF NO %
[2016-10-19 05:45] LABS: INTERNATIONAL NORMAL RATI 1.1 UNITS (-); PROTIME (NOT ORD) 14.2 SEC (12.0-14.5)
[2016-10-19 06:09] LABS: CHLORIDE, SERUM 100 MMOL/L (96-112); CO2 (CARBON DIOXIDE) 27 MMOL/L (24-34); CREATININE 0.87 MG/DL (0.55-1.02); GFR AFRICAN AMERICAN 79 ML/MIN (>=60); GFR NON AFRICAN AMERICAN 68 ML/MIN (>=60); PHOSPHORUS, SERUM 1.9 MG/DL (2.5-4.5); POTASSIUM, SERUM 3.7 MMOL/L (3.5-5.3); SODIUM, SERUM 137 MMOL/L (135-148)
[2016-10-19 06:12] LABS: PLATELET ESTIMATE ADQ (ADEQUATE)
[2016-10-19 06:13] LABS: HYPOCHROMIA 1+ (3-10/OIF) (0-2/OIF)
[2016-10-19 06:13] LABS: BUN (BLOOD UREA NITROGEN) 13 MG/DL (6-23); GLUCOSE, SERUM 173 MG/DL (60-99)
[2016-10-19 06:14] LABS: ELLIPTOCYTES 1+ (3-10/OIF) (0-2/OIF)
[2016-10-19 06:15] LABS: MICROCYTES 1+ (5-10/OIF) (0-5/OIF)
[2016-10-20 04:27] LABS: BASOPHILS 0.2 %; BASOPHILS ABSOLUTE 0.02 10/3/uL (0.0-0.16); EOSINOPHILS 0.4 %; EOSINOPHILS ABSOLUTE 0.04 10/3/uL (0.0-0.53); HEMATOCRIT 27.6 % (36.0-48.0); HEMOGLOBIN 8.3 g/dL (12.0-16.0); IMMATURE GRANULOCYTES 0.4 %; IMMATURE GRANULOCYTES ABSOLUTE 0.04 10/3/uL (0.0-0.11); LYMPHOCYTES 13.4 %; LYMPHOCYTES ABSOLUTE 1.36 10/3/uL (0.67-4.30); MEAN CORPUS HGB CONC 30.1 g/dL (32.0-36.0); MEAN CORPUSCULAR HEMOGLOB 22.4 pg (26.0-34.0); MEAN CORPUSCULAR VOLUME 74.4 fL (80-100); MEAN PLATELET VOLUME 8.7 fL (9.2-13.0); MONOCYTES 7.5 %; MONOCYTES ABSOLUTE 0.76 10/3/uL (0.21-1.20); NEUTROPHILS 78.1 %; NEUTROPHILS ABSOLUTE 7.93 10/3/uL (2.02-8.40); PLATELET COUNT 318 10/3/uL (150-400); RBC DISTRIBUTION WIDTH 22.9 % (12.0-16.0); RED CELL COUNT 3.71 10/6/uL (4.0-5.6); WHITE BLOOD CELLS 10.2 10/3/uL (4.5-10.5)
[2016-10-20 04:40] LABS: BUN (BLOOD UREA NITROGEN) 9 MG/DL (6-23); CALCIUM, SERUM 8.1 MG/DL (8.5-10.4); CHLORIDE, SERUM 102 MMOL/L (96-112); CO2 (CARBON DIOXIDE) 28 MMOL/L (24-34); CREATININE 1.07 MG/DL (0.55-1.02); GFR AFRICAN AMERICAN 62 ML/MIN (>=60); GFR NON AFRICAN AMERICAN 53 ML/MIN (>=60); GLUCOSE, SERUM 102 MG/DL (60-99); MANUAL DIFF NO %; PHOSPHORUS, SERUM 2.2 MG/DL (2.5-4.5); POTASSIUM, SERUM 4.1 MMOL/L (3.5-5.3); SODIUM, SERUM 139 MMOL/L (135-148)
[2016-10-20 05:04] LABS: PLATELET ESTIMATE ADQ (ADEQUATE); POIKILOCYTOSIS 1+ (5-10/OIF) (0-5/OIF); RBC MORPHOLOGY ABN (NORMAL)
[2016-10-21 07:06] LABS: BASOPHILS 0.1 %; BASOPHILS ABSOLUTE 0.01 10/3/uL (0.0-0.16); EOSINOPHILS 0 %; HEMATOCRIT 26.6 % (36.0-48.0); HEMOGLOBIN 8.2 g/dL (12.0-16.0); IMMATURE GRANULOCYTES 0.4 %; IMMATURE GRANULOCYTES ABSOLUTE 0.05 10/3/uL (0.0-0.11); LYMPHOCYTES 5.9 %; LYMPHOCYTES ABSOLUTE 0.71 10/3/uL (0.67-4.30); MANUAL DIFF NO %; MEAN CORPUS HGB CONC 30.8 g/dL (32.0-36.0); MEAN CORPUSCULAR HEMOGLOB 22.7 pg (26.0-34.0); MEAN CORPUSCULAR VOLUME 73.5 fL (80-100); MEAN PLATELET VOLUME 8.7 fL (9.2-13.0); MONOCYTES 5.9 %; MONOCYTES ABSOLUTE 0.71 10/3/uL (0.21-1.20); NEUTROPHILS 87.7 %; NEUTROPHILS ABSOLUTE 10.63 10/3/uL (2.02-8.40); PLATELET COUNT 300 10/3/uL (150-400); RBC DISTRIBUTION WIDTH 22.8 % (12.0-16.0); RED CELL COUNT 3.62 10/6/uL (4.0-5.6); WHITE BLOOD CELLS 12.1 10/3/uL (4.5-10.5)
[2016-10-21 07:27] LABS: HYPOCHROMIA 1+ (3-10/OIF) (0-2/OIF); MICROCYTES 1+ (5-10/OIF) (0-5/OIF); PLATELET ESTIMATE ADQ (ADEQUATE); RBC MORPHOLOGY ABN (NORMAL)
[2016-10-21 07:31] LABS: BUN (BLOOD UREA NITROGEN) 11 MG/DL (6-23); CHLORIDE, SERUM 100 MMOL/L (96-112); CREATININE 1.18 MG/DL (0.55-1.02); GFR AFRICAN AMERICAN 55 ML/MIN (>=60); GFR NON AFRICAN AMERICAN 47 ML/MIN (>=60); SODIUM, SERUM 133 MMOL/L (135-148)
[2016-10-21 07:32] LABS: CO2 (CARBON DIOXIDE) 23 MMOL/L (24-34); GLUCOSE, SERUM 406 MG/DL (60-99); POTASSIUM, SERUM 5.1 MMOL/L (3.5-5.3)
[2016-10-21 12:56] LABS: PROCALCITONIN 0.31 ng/mL (<0.5)
[2016-10-22 00:15] LABS: ASCORBIC ACID (UR NOT ORDER) NEG (NEG); BILIRUBIN, URINE NEGATIVE (NEG); KETONE, URINE NEGATIVE (NEG); LEUKOCYTE ESTERASE(NOT OR LARGE (NEG); WBC (NOT ORDERED) (RFLEX) 27 (0-5)
[2016-10-22 05:40] LABS: BUN (BLOOD UREA NITROGEN) 10 MG/DL (6-23); CALCIUM, SERUM 7.9 MG/DL (8.5-10.4); CHLORIDE, SERUM 101 MMOL/L (96-112); CO2 (CARBON DIOXIDE) 23 MMOL/L (24-34); CREATININE 0.87 MG/DL (0.55-1.02); GFR AFRICAN AMERICAN 79 ML/MIN (>=60); GFR NON AFRICAN AMERICAN 68 ML/MIN (>=60); PHOSPHORUS, SERUM 1.8 MG/DL (2.5-4.5); POTASSIUM, SERUM 4.1 MMOL/L (3.5-5.3); SODIUM, SERUM 134 MMOL/L (135-148)
[2016-10-22 05:49] LABS: GLUCOSE, SERUM 96 MG/DL (60-99)
[2016-10-22 06:06] LABS: BASOPHILS 0.2 %; BASOPHILS ABSOLUTE 0.02 10/3/uL (0.0-0.16); EOSINOPHILS 0.7 %; EOSINOPHILS ABSOLUTE 0.06 10/3/uL (0.0-0.53); IMMATURE GRANULOCYTES 0.7 %; IMMATURE GRANULOCYTES ABSOLUTE 0.06 10/3/uL (0.0-0.11); LYMPHOCYTES 18.9 %; LYMPHOCYTES ABSOLUTE 1.59 10/3/uL (0.67-4.30); MEAN CORPUSCULAR VOLUME 73.3 fL (80-100); MEAN PLATELET VOLUME 9.1 fL (9.2-13.0); MONOCYTES 8.1 %; MONOCYTES ABSOLUTE 0.68 10/3/uL (0.21-1.20); NEUTROPHILS 71.4 %; NEUTROPHILS ABSOLUTE 6.01 10/3/uL (2.02-8.40); PLATELET COUNT 297 10/3/uL (150-400); RBC DISTRIBUTION WIDTH 22.4 % (12.0-16.0); RED CELL COUNT 3.18 10/6/uL (4.0-5.6); WHITE BLOOD CELLS 8.4 10/3/uL (4.5-10.5)
[2016-10-22 06:08] LABS: HEMATOCRIT 23.3 % (36.0-48.0); MANUAL DIFF NO %
[2016-10-22 07:45] LABS: MICROCYTES 1+ (5-10/OIF) (0-5/OIF); PLATELET ESTIMATE ADQ (ADEQUATE)
[2016-10-23 06:36] LABS: BASOPHILS 0.2 %; BASOPHILS ABSOLUTE 0.01 10/3/uL (0.0-0.16); EOSINOPHILS 0.8 %; EOSINOPHILS ABSOLUTE 0.05 10/3/uL (0.0-0.53); IMMATURE GRANULOCYTES 0.5 %; IMMATURE GRANULOCYTES ABSOLUTE 0.03 10/3/uL (0.0-0.11); LYMPHOCYTES 22.8 %; LYMPHOCYTES ABSOLUTE 1.48 10/3/uL (0.67-4.30); MEAN PLATELET VOLUME 8.6 fL (9.2-13.0); MONOCYTES 9.5 %; MONOCYTES ABSOLUTE 0.62 10/3/uL (0.21-1.20); NEUTROPHILS 66.2 %; NEUTROPHILS ABSOLUTE 4.31 10/3/uL (2.02-8.40); PLATELET COUNT 295 10/3/uL (150-400); RBC DISTRIBUTION WIDTH 21.1 % (12.0-16.0); WHITE BLOOD CELLS 6.5 10/3/uL (4.5-10.5)
[2016-10-23 06:37] LABS: HEMOGLOBIN 11.2 g/dL (12.0-16.0); MANUAL DIFF NO %; MEAN CORPUSCULAR HEMOGLOB 24.6 pg (26.0-34.0); MEAN CORPUSCULAR VOLUME 76.9 fL (80-100); RED CELL COUNT 4.55 10/6/uL (4.0-5.6)
[2016-10-23 08:31] LABS: BUN (BLOOD UREA NITROGEN) 9 MG/DL (6-23); CALCIUM, SERUM 8.1 MG/DL (8.5-10.4); CHLORIDE, SERUM 105 MMOL/L (96-112); CO2 (CARBON DIOXIDE) 24 MMOL/L (24-34); CREATININE 0.88 MG/DL (0.55-1.02); GFR AFRICAN AMERICAN 78 ML/MIN (>=60); GFR NON AFRICAN AMERICAN 68 ML/MIN (>=60); GLUCOSE, SERUM 108 MG/DL (60-99)
[2016-10-23 08:38] LABS: PHOSPHORUS, SERUM 2.5 MG/DL (2.5-4.5); SODIUM, SERUM 142 MMOL/L (135-148)
[2016-10-24 04:38] LABS: BASOPHILS 0.3 %; BASOPHILS ABSOLUTE 0.02 10/3/uL (0.0-0.16); EOSINOPHILS 1.8 %; EOSINOPHILS ABSOLUTE 0.13 10/3/uL (0.0-0.53); HEMATOCRIT 34.6 % (36.0-48.0); IMMATURE GRANULOCYTES 0.6 %; IMMATURE GRANULOCYTES ABSOLUTE 0.04 10/3/uL (0.0-0.11); LYMPHOCYTES 23.2 %; LYMPHOCYTES ABSOLUTE 1.63 10/3/uL (0.67-4.30); MEAN CORPUS HGB CONC 31.8 g/dL (32.0-36.0); MEAN CORPUSCULAR HEMOGLOB 24.5 pg (26.0-34.0); MEAN CORPUSCULAR VOLUME 77.1 fL (80-100); MEAN PLATELET VOLUME 8.6 fL (9.2-13.0); MONOCYTES 10.2 %; MONOCYTES ABSOLUTE 0.72 10/3/uL (0.21-1.20); NEUTROPHILS 63.9 %; PLATELET COUNT 330 10/3/uL (150-400); RBC DISTRIBUTION WIDTH 21.6 % (12.0-16.0); RED CELL COUNT 4.49 10/6/uL (4.0-5.6)
[2016-10-24 04:40] LABS: MANUAL DIFF NO %
[2016-10-24 04:49] LABS: BUN (BLOOD UREA NITROGEN) 9 MG/DL (6-23); CHLORIDE, SERUM 104 MMOL/L (96-112); CO2 (CARBON DIOXIDE) 27 MMOL/L (24-34); GFR AFRICAN AMERICAN 88 ML/MIN (>=60); GFR NON AFRICAN AMERICAN 76 ML/MIN (>=60); POTASSIUM, SERUM 3.8 MMOL/L (3.5-5.3); SODIUM, SERUM 142 MMOL/L (135-148)
[2016-10-24 04:52] LABS: GLUCOSE, SERUM 63 MG/DL (60-99)
[2016-10-24] MEDS ORDERED: LEVEMIR SC (11:59)
[2016-10-24] MEDS ORDERED: NOVOLOG SC (12:02)
[2016-10-24] MEDS ORDERED: COZ25 PO (12:02)
[2016-10-24] MEDS ORDERED: IMDUR30 PO (12:02)
[2016-10-24] MEDS ORDERED: HALF81 PO (12:03)
[2016-10-24] MEDS ORDERED: PROTONIX PO (12:04)
[2016-10-24] MEDS ORDERED: PERCOCET 7.5/321 TAB PO (12:04)
== END 2016-10-24 15:57 | disposition home or self-care (01) | DRG 330 ==
LOC: 6NO 14:00 → SDC/OF 10-20 14:10 → 5SO 10-20 15:19
PROVIDERS: Internal Medicine; Internal Medicine Gastroenterology; Nurse Practitioner Family; Surgery
PROC: 30233N1 Transfusion of Nonautologous Red Blood Cells into Peripheral Vein, Percutaneous Approach (ICD-10-PCS; 2016-10-15)
PROC: 0DB68ZX Excision of Stomach, Via Natural or Artificial Opening Endoscopic, Diagnostic (ICD-10-PCS; 2016-10-19 09:20)
PROC: 3E0T3CZ (ICD-10-PCS; 2016-10-20)
PROC: 0DBK4ZZ Excision of Ascending Colon, Percutaneous Endoscopic Approach (ICD-10-PCS; principal; 2016-10-20 10:15)
DX: C18.0 Malignant neoplasm of cecum (principal); N17.9 Acute kidney failure, unspecified; E87.2 Acidosis; E44.0 Moderate protein-calorie malnutrition; N39.0 Urinary tract infection, site not specified; E87.1 Hypo-osmolality and hyponatremia; E11.65 Type 2 diabetes mellitus with hyperglycemia; B96.20 Unspecified Escherichia coli [E. coli] as the cause of diseases classified elsewhere; I10 Essential (primary) hypertension; E87.5 Hyperkalemia; K29.70 Gastritis, unspecified, without bleeding; K29.80 Duodenitis without bleeding; D63.0 Anemia in neoplastic disease; Z86.73 Personal history of transient ischemic attack (TIA), and cerebral infarction without residual deficits; E78.5 Hyperlipidemia, unspecified; Z82.49 Family history of ischemic heart disease and other diseases of the circulatory system; Z83.3 Family history of diabetes mellitus; Z79.899 Other long term (current) drug therapy; Z79.82 Long term (current) use of aspirin; Z68.24 Body mass index [BMI] 24.0-24.9, adult; Z79.4 Long term (current) use of insulin; Z88.6 Allergy status to analgesic agent
CPT/HCPCS: 36415; 36430; 71010; 71260; 74178; 76775; 80048; 80069; 80076; 81001; 82272; 82378; 82570; 82962; 83735; 84100; 84145; 84300; 85014; 85018; 85025; 85610; 86850; 86900; 86901; 86920; 87077; 87086; 87186; 88305; 88309; 88341; 88342; 93005; 93971; 97162-GP; 97164-GP; A9270-GY; C9113; G0463; G8978-CI-GP; G8979-CI-GP; G8980-CI-GP; J0360; J0690; J2250; J2405; J2710; J2795; J3010; P9016; Q9967